=== PATIENT | female | born 1970 | race Caucasian/White ===

== ENCOUNTER → 2017-03-29 | Outpatient (CLI) | payer OTHER ==
--- NOTE | 2017-03-29 18:37 | PCVCIMAG ---
APPROVED REPORT Study performed: 03/29/2017 16:51:26 EXAM: Comprehensive 2D, Doppler, and color-flow Echocardiogram Patient Location: Echo lab Status: routine BSA: 1.81 HR: 88 bpmBP: 122/80 mmHg Rhythm: NSR Other Information Study Quality: Good Risk Factors: Cardiac Risk Factors: Hyperlipidemia Indications CVA/TIA Known PFO, Migraines Echo Enhancing Agent Indication: assess PFO Agent(s) / Amount(s) Used: Agitated Saline cc Comments: Contrast study was performed with 3 IV injections of 10ccs of agitated normal saline, at rest, with cough and post valsalva maneuver. Positive contrast study for right to left shunt flow. 2D Dimensions LVEF(%): 62.45 (>50%) IVSd: 8.91 (7-11mm)LVOT Diam: 22.90 (18-24mm) LVDd: 48.61 mm PWd: 8.40 (7-11mm)Ascending Ao: 28.91 (22-36mm) LVDs: 32.20 (25-40mm) Left Atrium: 31.42 (27-40mm) Aortic Root: 24.22 mm LV Single Plane 4CH: 54.97 % LV Single Plane 2CH: 60.06 %Gillespie's LVEF: 57.51 % Biplane EF: 56.9 % Volumes Left Atrial Volume (Systole) Single Plane 4CH: 47.69 mLSingle Plane 2CH: 60.26 mL Biplane LA Volume: 54.00 mLLA ESV Index: 30.00 mL/m2 Aortic Valve AoV Peak Srikanth.: 1.25 m/s AO Peak Gr.: 6.24 mmHgLVOT Max P.68 mmHg LVOT Max V: 0.82 m/s SYBIL Vmax: 2.70 cm2 Mitral Valve E/A Ratio: 1.1 MV Decel. Time: 170.82 ms MV E Max Srikanth.: 0.57 m/s MV A Srikanth.: 0.54 m/s IVRT: 93.43 ms Tricuspid Valve TV Vmax: 0.60 m/s Left Ventricle The left ventricle is normal size. There is normal LV segmental wall motion. There is normal left ventricular wall thickness. Left ventricular systolic function is normal. The left ventricular ejection fraction is within the normal range. LVEF is 55-60%. The left ventricular diastolic function is normal. Right Ventricle The right ventricle is normal size. The right ventricular systolic function is normal. Atria The left atrium size is normal. aneurysmal intra atrial septum w pos bubble study Atrial septal aneurysm is present with PFO. Injection of bubbles documented an interatrial shunt. The right atrium size is normal. Aortic Valve The aortic valve is normal in structure. No aortic regurgitation is present. There is no aortic valvular stenosis. Mitral Valve The mitral valve is normal in structure. There is no mitral valve regurgitation noted. No evidence of mitral valve stenosis. Tricuspid Valve The tricuspid valve is normal in structure. There is no tricuspid valve regurgitation noted. Pulmonic Valve The pulmonary valve is normal in structure. There is no pulmonic valvular regurgitation. Great Vessels The aortic root is normal in size. IVC is normal in size and collapses with >50% inspiration Pericardium There is no pericardial effusion. There is no pleural effusion. <Conclusion> The left ventricle is normal size. LVEF is 55-60%. The left ventricular diastolic function is normal. The right ventricle is normal size. The left atrium size is normal. The right atrium size is normal. The aortic valve is normal in structure. There is no aortic valvular stenosis. There is no mitral valve regurgitation noted. There is no tricuspid valve regurgitation noted. There is no pericardial effusion. The left atrium size is normal. aneurysmal intra atrial septum w pos bubble study cw pfo
== END | disposition home or self-care (01) ==
LOC: PCVCIMAG 16:29
PROVIDERS: ATTEND Internal Medicine Cardiovascular Disease
DX: I63.9 Cerebral infarction, unspecified (principal); Q21.1 Atrial septal defect
CPT/HCPCS: 93306

== ENCOUNTER → 2018-10-03 | Outpatient (CLI) | payer OTHER ==
--- NOTE | 2018-10-03 15:03 | PCVCIMAG ---
APPROVED REPORT Study performed: 10/03/2018 14:01:14 Exam: Stress Echocardiogram Indication: Hyperlipidemia, Hypertension Stress Nurse: Natasha Acosta RN Status: routine Ht: 5 ft 5 in Medical History Medical History: PFO, CVA Procedure The patient underwent an Exercise Stress Test using the Gabe Protocol. Blood pressure, heart rate, and EKG were monitored. An Echocardiogram was performed by windows migration technician in four stages in quad fashion. At peak stress, four selected images were obtained and placed side by side with resting images for comparison. Stress Test Details Stress Test: Exercise stress testing was performed using a Gabe protocol. HR Resting HR: 74 bpmMax Heart Rate (APMHR): 172 bpm Max HR Achieved: 118 bpmTarget HR (85% APMHR): 146 bpm % of APMHR: 68 Recovery HR: 81 bpm HR response to stress: Blunted HR response to stress BP Resting BP: 100/80 mmHg Max BP: 130/64 mmHg Recovery BP: 106/70 mmHg BP response to stress: Blunted blood pressure response to stress. ECG Resting ECG: Sinus Rhythm Stress ECG: Sinus Rhythm Recovery ECG: Sinus Rhythm Clinical Reason for Termination: Maximal effort Exercise duration: 6 min 55 sec Highest Stage Achieved: Stage 3: 3.4 mph at 14% grade. Exercise capacity: 9.70 METs Overall Exercise Capacity for Age: Poor Pre-Stress Echo The resting Echocardiogram showed normal left ventricular contractility with an estimated Ejection Fraction of about 55-60%. Normal wall motion in all segments on baseline images. Post-Stress Echo The stress Echocardiogram showed normal left ventricular contractility with an estimated Ejection Fraction of about 60-65%. Normal augmentation of wall motion in all segments on post stress images. Clinical No clinical or ECG evidence for ischemia. Conclusion Clinical Response: Non-ischemic Exercise Capacity: Below Average Stress ECG Response: Non-ischemic Stress Echo Images: Non-ischemic The left ventricle is normal in size and wall thickness in both the rest and stress images. Submaximal heart rate. Patient took beta risa. Other Information Study Quality: Good <Conclusion> The left ventricle is normal in size and wall thickness in both the rest and stress images. Submaximal heart rate. Patient took beta risa.
== END | disposition home or self-care (01) ==
LOC: PCVCIMAG 10:00
PROVIDERS: ATTEND Internal Medicine Cardiovascular Disease
DX: I10 Essential (primary) hypertension (principal); E78.5 Hyperlipidemia, unspecified
CPT/HCPCS: 93325; 93351